=== PATIENT | female | born 2000 | race Caucasian/White ===

== ENCOUNTER 2021-03-04 02:07 | Day surgery (SDC) | payer BC, SELFPAY ==
[2021-02-25 14:39] VITALS: BMI 22.6
[2021-03-04 12:59] VITALS: BP 121/91; RESP 18; TEMP 37.3; O2SAT 100; BMI 21.2
--- NOTE | 2021-03-04 13:10 | WPDANESEPPF ---
Anes - Initial Pre Proc Eval Procedure: Operation Date: 03/04/21 13:30 Proposed Procedures p Esophagogastroduodenoscopy & Colonoscopy - Panchito Morgan DO Date/Time: 03/04/21 13:10 Surgeon: Panchito Morgan DO Pre Op Diagnosis: Abdominal Pain, GERD Patient Data Age: 20 Gender: F Height: 5 ft 6 in Weight: 59.7 kg Last Vital Signs Temp 37.3 C 03/04/21 12:59 Resp 18 03/04/21 12:59 BP 121/91 H 03/04/21 12:59 Pulse Ox 100 03/04/21 12:59 Allergies Allergy/AdvReac Type Severity Reaction Status Date / Time duloxetine Allergy Rash Verified 02/25/21 14:37 Home Medications Medication Instructions Recorded Confirmed Type amitriptyline 25 mg PO DAILY 02/25/21 02/25/21 History omeprazole 20 mg PO BID 02/25/21 03/04/21 History Patient hx anesthesia problems: none Family hx anesthesia problems: none PMFSH Past Medical History Medical History Anxiety GERD (gastroesophageal reflux disease) Hx of migraines Social History Social History Substance use type: does not use Living arrangements: with family Gender identity (if verbalized by the patient): Female Spiritual care concerns: No Anes - Eval Final PreProcedure Day of Procedure 03/04/21 13:10 Patient weight: normal Heart: regular rate and rhythm Lungs: clear to auscultation Airway: Mallampati scale class II Neurological: alert and oriented Last oral intake: >/= 8 hours ASA classification: II Emergent: no Anesthetic plan: proceed Anesthesia type and monitoring: general GIVS and standard monitoring Informed Consent: The patient's anesthetic plan and its attendant risks and benefits were discussed with the patient/family/POA. Questions were solicited and answers provided to the satisfaction of the patient/family/POA.
[2021-03-04] MEDS: LACTATED RINGERS 1,000 ML 150 ML IV CONT ×2 (13:14→14:48)
--- NOTE | 2021-03-04 14:13 | WPDGICN ---
GI Consult Note Consult date/time: 03/04/21 14:13 HPI: Reason for visit EGD and colonoscopy. This very pleasant young lady's seen in consultation at the request the primary physician. Impression: Year very pleasant lady with underlying reflux disease. Evaluate for lying erosive esophagitis. The patient does have lower abdominal pain. Evaluate for underlying inflammatory neoplastic disease. Interstitial cystitis. Scoliosis. Migraine cephalgia. Recommendation: EGD and colonoscopy. History: This very pleasant lady is being evaluated for chronic nausea and reflux disease. She has severe reflux only partially relieved with omeprazole b.i.d.. She has been having lower abdominal pain on off for years. She reports nausea at times. Vomiting hematemesis dysphagia odynophagia tonight. She denies hematochezia, melena acholic stools. She has a strong family history of colon cancer and adenomatous colon polyps. Physical examination: General: very pleasant patient in no acute distress. HEENT: Head was normocephalic sclerae is clear mouth without masses neck was supple. Heart: Rate rhythm regular without S3 or S4. Lungs: CTA. Abdomen: Soft with no guarding or rigidity. Bowel sounds were active. Neurologic: Cranial nerves 2 through 12 intact. No focal defects. No clonus. Musculoskeletal system: Revealed no joint tenderness or swelling no muscle atrophy. Extremities: Reveal no significant edema. Skin: Warm and dry with normal turgor. Mental status: intact. Patient is alert and oriented. Review of Systems Review of Systems: All systems reviewed & are unremarkable except as noted in HPI and below PMFSH Past Medical History Medical History Anxiety GERD (gastroesophageal reflux disease) Hx of migraines Social History Social History Substance use type: does not use Living arrangements: with family Gender identity (if verbalized by the patient): Female Spiritual care concerns: No Meds Home Medications and Allergies Home Medications Medication Instructions Recorded Confirmed Type amitriptyline 25 mg PO DAILY 02/25/21 02/25/21 History omeprazole 20 mg PO BID 02/25/21 03/04/21 History Allergies Allergy/AdvReac Type Severity Reaction Status Date / Time duloxetine Allergy Rash Verified 02/25/21 14:37 Vital Signs Vital Signs - 24 hr 03/04/21 12:59 Temperature 37.3 C Respiratory Rate 18 Blood Pressure 121/91 H Pulse Oximetry 100
[2021-03-04 14:49] VITALS: BP 96/61; PULSE 99; RESP 21; O2SAT 100
[2021-03-04 14:59] VITALS: BP 112/73; PULSE 98; RESP 12; O2SAT 100
[2021-03-04 15:09] VITALS: BP 114/81; PULSE 91; RESP 19; O2SAT 100
== END 2021-03-04 15:27 | disposition home or self-care (01) ==
PROVIDERS: PCP Internal Medicine; Visit Provider Internal Medicine Gastroenterology
PROC: 0DJ08ZZ Inspection of Upper Intestinal Tract, Via Natural or Artificial Opening Endoscopic (ICD-10-PCS; CPT 43235; principal; 2021-03-04 13:30)
DX: R10.30 Lower abdominal pain, unspecified (principal); K21.9 Gastro-esophageal reflux disease without esophagitis; Z86.010 Personal history of colon polyps; Z80.0 Family history of malignant neoplasm of digestive organs; N30.10 Interstitial cystitis (chronic) without hematuria; M41.9 Scoliosis, unspecified; F41.9 Anxiety disorder, unspecified
CPT/HCPCS: 45378; 43239; 87081; 88305; J2704; J7120

== ENCOUNTER 2021-06-24 14:44 | Outpatient (CLI) | payer BC, SELFPAY ==
--- NOTE | ~2021-06-24 | XR_ITS ---
EXAMINATION: XR elbow RT 2V DATE: 06/24/2021 16:50 INDICATION: Arthritis. TECHNIQUE: 2 views of right elbow were obtained. COMPARISON: None. FINDINGS: Bone alignment is normal. No fracture. Joint spaces are normal. No elbow joint effusion. IMPRESSION: 1. Normal right elbow. Reviewed, dictated and finalized at location A. IMPRESSION: 1. Normal right elbow.
--- NOTE | ~2021-06-24 | XR_ITS ---
EXAMINATION: XR shoulder RT min 2V DATE: 06/24/2021 16:49 INDICATION: Arthritis. TECHNIQUE: 2 views of right shoulder were obtained. COMPARISON: None. FINDINGS: Bone alignment is normal. No fracture. Joint spaces are well maintained. IMPRESSION: 1. Normal right shoulder. Reviewed, dictated and finalized at location A. IMPRESSION: 1. Normal right shoulder.
--- NOTE | ~2021-06-24 | XR_ITS ---
EXAMINATION: XR wrist LT 2V DATE: 06/24/2021 16:50 INDICATION: Arthritis. TECHNIQUE: 2 views of left wrist were obtained. COMPARISON: None. FINDINGS: Bone alignment is normal. No fracture. Joint spaces are normal. IMPRESSION: 1. Normal left wrist. Reviewed, dictated and finalized at location A. IMPRESSION: 1. Normal left wrist.
--- NOTE | ~2021-06-24 | XR_ITS ---
EXAMINATION: XR elbow LT 2V DATE: 06/24/2021 16:49 INDICATION: Arthritis. TECHNIQUE: 2 views of left elbow were obtained. COMPARISON: None. FINDINGS: Bone alignment is normal. No fracture. Joint spaces are normal. No elbow joint effusion. IMPRESSION: 1. Normal left elbow. Reviewed, dictated and finalized at location A. IMPRESSION: 1. Normal left elbow.
--- NOTE | ~2021-06-24 | XR_ITS ---
EXAMINATION: XR knee LT 2V DATE: 06/24/2021 16:50 INDICATION: Arthritis. TECHNIQUE: 2 views of left knee standing were obtained. COMPARISON: None. FINDINGS: Bone alignment is normal. No fracture. There is mild osteoarthritis of medial compartment c haracterized by a tiny marginal osteophyte. No joint space narrowing. IMPRESSION: 1. Mild left knee osteoarthritis. Reviewed, dictated and finalized at location A.
--- NOTE | ~2021-06-24 | XR_ITS ---
EXAMINATION: XR foot RT 2V DATE: 06/24/2021 16:50 INDICATION: Arthritis. TECHNIQUE: 2 views of right foot were obtained. COMPARISON: None. FINDINGS: Bone alignment is normal. No fracture. Joint spaces are normal. IMPRESSION: 1. Normal right foot. Reviewed, dictated and finalized at location A. IMPRESSION: 1. Normal right foot.
--- NOTE | ~2021-06-24 | XR_ITS ---
EXAMINATION: XR ankle RT 2V DATE: 06/24/2021 16:49 INDICATION: Arthritis. TECHNIQUE: 2 views of right ankle were obtained. COMPARISON: None. FINDINGS: Bone alignment is normal. No fracture. There is mild osteoarthritis of talonavicular joint. IMPRESSION: 1. Mild osteoarthritis of talonavicular joint. Reviewed, dictated and finalized at location A.
--- NOTE | ~2021-06-24 | XR_ITS ---
XR hip BI wo pelvis DATE: 06/24/2021 16:49 INDICATION: Arthritis. Hip pain. TECHNIQUE: AP and lateral views of each hip COMPARISON: None FINDINGS: No fracture or dislocation, avascular necrosis or bone destruction of either hip is evident . Hip joint spaces appear symmetric and relatively preserved. The sacroiliac joints appear normally aligned. IMPRESSION: No significant abnormality Reviewed, dictated and finalized at location A. IMPRESSION: No significant abnormality
--- NOTE | ~2021-06-24 | XR_ITS ---
EXAMINATION: XR shoulder LT min 2V DATE: 06/24/2021 16:49 INDICATION: Arthritis. TECHNIQUE: 2 views of left shoulder were obtained. COMPARISON: None. FINDINGS: Bone alignment is normal. No fracture. Joint spaces are well maintained. IMPRESSION: 1. Normal left shoulder. Reviewed, dictated and finalized at location A. IMPRESSION: 1. Normal left shoulder.
--- NOTE | ~2021-06-24 | XR_ITS ---
EXAMINATION: XR wrist RT 2V DATE: 06/24/2021 16:50 INDICATION: Arthritis. TECHNIQUE: 2 views of right wrist were obtained. COMPARISON: None. FINDINGS: Bone alignment is normal. No fracture. Joint spaces are normal. IMPRESSION: 1. Normal right wrist. Reviewed, dictated and finalized at location A. IMPRESSION: 1. Normal right wrist.
--- NOTE | ~2021-06-24 | XR_ITS ---
EXAMINATION: XR foot LT 2V DATE: 06/24/2021 16:50 INDICATION: Arthritis. TECHNIQUE: 2 views of left foot were obtained. COMPARISON: None. FINDINGS: Bone alignment is normal. No fracture. Joint spaces are normal. IMPRESSION: 1. Normal left foot. Reviewed, dictated and finalized at location A. IMPRESSION: 1. Normal left foot.
--- NOTE | ~2021-06-24 | XR_ITS ---
XR hand BI arthritis min 3V DATE: 06/24/2021 16:49 INDICATION: Arthritis. Hand pain. TECHNIQUE: 3 views of each hand COMPARISON: None FINDINGS: No fracture, dislocation, periosteal reaction or bone destruction, erosive change, chondroc alcinosis or significant joint space narrowing is detected. IMPRESSION: No significant abnormality Reviewed, dictated and finalized at location A. IMPRESSION: No significant abnormality
--- NOTE | ~2021-06-24 | XR_ITS ---
EXAMINATION: XR knee RT 2V DATE: 06/24/2021 16:50 INDICATION: Arthritis. TECHNIQUE: 2 views of right knee standing were obtained. COMPARISON: None. FINDINGS: Bone alignment is normal. No fracture. Joint spaces are normal. No knee joint effusion. IMPRESSION: 1. Normal right knee. Reviewed, dictated and finalized at location A. IMPRESSION: 1. Normal right knee.
--- NOTE | ~2021-06-24 | XR_ITS ---
EXAMINATION: XR ankle LT 2V DATE: 06/24/2021 16:49 INDICATION: Arthritis. TECHNIQUE: 2 views of left ankle were obtained. COMPARISON: None. FINDINGS: Bone alignment is normal. No fracture. There is mild osteoarthritis of talonavicular joint. IMPRESSION: 1. Mild osteoarthritis of talonavicular joint. Reviewed, dictated and finalized at location A.
== END 2021-06-24 14:45 ==
PROVIDERS: PCP Internal Medicine; Visit Provider Internal Medicine Rheumatology
DX: M19.071 Primary osteoarthritis, right ankle and foot (principal); M19.072 Primary osteoarthritis, left ankle and foot; M17.12 Unilateral primary osteoarthritis, left knee
CPT/HCPCS: 73030; 73070; 73100; 73130; 73521; 73560; 73600; 73620

== ENCOUNTER 2021-06-29 07:45 | Outpatient (CLI) | payer BC, SELFPAY ==
--- NOTE | ~2021-06-29 | MR_ITS ---
EXAMINATION: MR cervical spine wo con EXAM DATE: 06/29/2021 08:54 INDICATION: Neck pain. TECHNIQUE: Multi-sequential, multiplanar MR images of the cervical spine were obtained without contra st. Axial T2, axial T2 MERGE sequence. Sagittal T1, T2, T2 fat saturation images also obtained. Th ere is no prior study for comparison. FINDINGS: There is mild reversal of the normal cervical lordosis which may be positional or spasm. Th e vertebral bodies are aligned in the AP dimension. Vertebral body and disc heights are well-maintain ed. There are no suspicious marrow signal abnormalities. The spinal cord signal intensity and intrins ic morphology is normal. Cervicomedullary junction is normal in appearance. Paraspinal soft tissue is unremarkable. There is evidence of mild cervical facet arthropathy, without neural foraminal stenos is. Central canal widely patent. The discs are confined to their endplate margins. IMPRESSION: 1. Mild cervical facet arthropathy. 2. Mild reversal normal cervical lordosis. Reviewed, dictated and finalized at location B.
--- NOTE | ~2021-06-29 | MR_ITS ---
EXAMINATION: MR lumbar spine wo con EXAM DATE: 06/29/2021 08:54 INDICATION: Low back pain. TECHNIQUE: Multi-sequential, multiplanar MR images of the lumbar spine were obtained without contrast . Sagittal T1, T2, T2 fat saturation images. Axial T2 weighted images. There is no prior study for comparison. FINDINGS: The vertebral bodies are aligned in the AP dimension. Vertebral body and disc heights are w ell-maintained. There are no suspicious marrow signal abnormalities. Paraspinal soft tissue is unrema rkable. The conus medullaris terminates at the L1 level and has normal signal intensity and morpholog y. Level by level evaluation: T12-L1: Disc does not extend beyond the endplate margin. Facet arthropathy: None. Neural foraminal stenosis: No stenosis. Central canal stenosis: No stenosis. L1-L2: Disc does not extend beyond the endplate margin. Facet arthropathy: None. Neural foraminal stenosis: No stenosis. Central canal stenosis: No stenosis. L2-L3: Disc does not extend beyond the endplate margin. Facet arthropathy: Mild. Neural foraminal stenosis: No stenosis. Central canal stenosis: No stenosis. L3-L4: Disc does not extend beyond the endplate margin. Facet arthropathy: Mild. Neural foraminal stenosis: No stenosis. Central canal stenosis: No stenosis. L4-L5: There is a minimal diffuse disc bulge. Facet arthropathy: Mild. Neural foraminal stenosis: No stenosis. Central canal stenosis: No stenosis. L5-S1: Disc does not extend beyond the endplate margin. Facet arthropathy: Mild. Neural foraminal stenosis: No stenosis. Central canal stenosis: No stenosis. IMPRESSION: Mild lumbar facet arthropathy. Reviewed, dictated and finalized at location B.
== END 2021-06-29 07:46 | disposition home or self-care (01) ==
LOC: ANHIMG 07:48
PROVIDERS: PCP Internal Medicine; Visit Provider Internal Medicine Rheumatology
DX: M54.2 Cervicalgia (principal); M54.5 Low back pain; M47.816 Spondylosis without myelopathy or radiculopathy, lumbar region; M47.812 Spondylosis without myelopathy or radiculopathy, cervical region; M53.82 Other specified dorsopathies, cervical region
CPT/HCPCS: 72141; 72148